=== PATIENT | female | born 1980 | race Caucasian/White ===

== ENCOUNTER 2022-05-16 23:47 | Inpatient (IN) | payer MEDICAID, OTHER ==
[~2022-05-16] VITALS: Ht 162.6 cm; Wt 124.7 kg
[2022-05-16 23:47] VITALS: BP 161/94
[~2022-05-16 23:47] MED LIST: ESOM40EC PO; GABA300C PO; METF-1274 PO; SULF-58 PO
--- NOTE | 2022-05-16 23:52 | NUR ---
PT BROUGHT TO BED 9 VIA AMBER
[2022-05-17] MEDS ORDERED: HALOPERIDOL IM 5 MG/ML VIAL IM ONE (00:30)
[2022-05-17] MEDS ORDERED: diphenhydrAMINE 50 MG/ML VIAL IM ONE (00:30)
--- NOTE | 2022-05-17 00:43 | NUR ---
XR AT BEDSIDE.
[2022-05-17] MEDS ORDERED: diphenhydrAMINE 50 MG/ML VIAL IVP ONE ×2 (00:45→02:05)
--- NOTE | 2022-05-17 01:02 | NUR ---
swabbed patient brice and influenza a&b and sent to lab
[2022-05-17] MEDS ORDERED: LORazepam 2 MG/ML VIAL IVP ONE (02:05)
--- NOTE | 2022-05-17 03:32 | NUR ---
ER MADE AWARE OF PATIENT'S FREQUENT HIGH BP AT 180s/100s
[2022-05-17 04:08] LABS: BASOPHILS # (AUTO) 0.1 K/uL (0.00-0.22); BASOPHILS % (AUTO) 0.5 % (0.0-2.0); HEMATOCRIT 30.5 % (36-48); HEMOGLOBIN 8.9 g/dL (12.0-16.0); LYMPHOCYTES # (AUTO) 2.6 K/uL (2.5-16.5); MEAN CORPUSCULAR HEMOGLOBIN 22 pg (27-31); MEAN CORPUSCULAR HGB CONC 29 g/dL (33-37); MEAN CORPUSCULAR VOLUME 73.8 fL (80-94); MONOCYTES # (AUTO) 2.4 K/uL (0.8-1.0); MONOCYTES % (AUTO) 14.2 % (1.7-9.3); NEUTROPHILS # (AUTO) 12.1 K/uL (1.8-7.7); NEUTROPHILS % (AUTO) 70.3 % (42.2-75.2); PLATELET COUNT (AUTO) 390 K/uL (140-450); RED BLOOD CELL COUNT(AUTO) 4.13 MIL/uL (4.20-5.40); RED CELL DISTRIBUTION WIDTH 19.1 % (11.6-13.7); WHITE BLOOD COUNT (AUTO) 17.2 K/uL (4.8-10.8)
[2022-05-17 04:20] LABS: ANION GAP 11.8 (8-16); CARBON DIOXIDE 25.8 mmol/L (21-32); CHLORIDE 100 mmol/L (98-107); CREATININE 1.6 mg/dL (0.6-1.3); GFR ARICAN-AMERICAN 45 mL/min (>90); GLUCOSE 304 mg/dL (74-106); POTASSIUM 5.6 mmol/L (3.5-5.1); SODIUM SERUM 132 mmol/L (136-145); UREA NITROGEN, BLOOD 26 mg/dL (7-18)
--- NOTE | 2022-05-17 04:20 | NUR ---
# 15 FR straight catheter utilizing sterile technique. Immediate return of 5 ml milka urine noted. Urine sample collected and sent to lab. Pt tolerated procedure well.
[2022-05-17 04:31] LABS: ALBUMIN 1.7 g/dL (3.4-5.0); ASPARTATE AMINOTRANSFERASE 31 U/L (15-37); TOTAL BILIRUBIN 0.3 mg/dL (0.0-1.0)
[2022-05-17 04:34] LABS: SALICYLATE < 2.8 mg/dL (2.8-20.0)
[2022-05-17 04:35] LABS: ACETAMINOPHEN < 0.5 ug/ml (10-30)
[2022-05-17 04:44] LABS: APPEARANCE,URINE CLEAR (CLEAR); BILIRUBIN,URINE NEGATIVE (NEGATIVE); BLOOD, URINE 1+ (NEGATIVE); COLOR,URINE YELLOW (YELLOW); LEUKOCYTE ESTERASE ,URINE NEGATIVE (NEGATIVE); NITRITE, URINE NEGATIVE (NEGATIVE); UGLUCOSE 3+ (NEGATIVE)
[2022-05-17] MEDS ORDERED: NACL 0.9% 1,000 ML IV ONE (04:50)
[2022-05-17 04:58] LABS: BARBITURATE, URINE NEGATIVE ng/ml (NEG <=200); BENZODIAZEPINE, URINE NEGATIVE ng/mL (NEG <=200); CANNABINOID, URINE NEGATIVE ng/mL (NEG <=50); COCAINE, URINE NEGATIVE ng/mL (NEG <=300); PHENCYCLIDINE SCREEN,URINE NEGATIVE ng/mL (NEG <=25)
[2022-05-17 04:59] LABS: OPIATE, URINE POSITIVE ng/mL (NEG <=2000)
[2022-05-17 05:00] LABS: RBC,URINE 20-50 /HPF (0-5); TRIPLE PHOSPHATE CRYSTAL,UR 0-10 /HPF (None Seen); WBC,URINE 0-5 /HPF (0-5)
[2022-05-17] MEDS ORDERED: OMEP40EC23 PO (06:26)
[2022-05-17] MEDS ORDERED: CARV3.12 PO (06:26)
[2022-05-17] MEDS ORDERED: LOSA100T1 PO (06:26)
[2022-05-17] MEDS ORDERED: ASPI-1822 PO (06:26)
[2022-05-17] MEDS ORDERED: FERR325E14 PO (06:26)
[2022-05-17] MEDS ORDERED: LIP80 PO (06:26)
--- NOTE | 2022-05-17 07:15 | NUR ---
Report and continution of care received from YOANA Donahue.
--- NOTE | 2022-05-17 07:15 | NUR ---
Pt report given to Ashish LEES. Transfer of care at this time.
--- NOTE | 2022-05-17 07:55 | NUR ---
Report and transfer of care given to YOANA Laura
--- NOTE | 2022-05-17 08:00 | NUR ---
RECEIVED PT IN [facility] RESPONS[facility] TO PAINFUL STIMULI. PT IMCOMPREHENSIBLE SOUNDS, UNABLE TO FOLLOW COMMANDS. STACH ON MONITOR. IV INTACT AND PATENT INFUSING FLUIDS PER ORDER. PENDING TELE BE FOR ADMISSION. BED IN LOW POSITION. NAD.
[2022-05-17] MEDS ORDERED: ZOLPIDEM 5 MG TAB PO PRN (08:15)
[2022-05-17] MEDS ORDERED: HYDROcodone/APAP 7.5/325 MG 1 TAB PO PRN (08:15)
[2022-05-17] MEDS ORDERED: guaiFENesin DM 200/20 MG-10 ML 10 ML UDC PO PRN (08:15)
[2022-05-17] MEDS ORDERED: ACETAMINOPHEN 325 MG TAB PO PRN (08:15)
[2022-05-17] MEDS ORDERED: HALOPERIDOL IM 5 MG/ML VIAL IM PRN (08:15)
[2022-05-17] MEDS ORDERED: DOCUSATE SODIUM 100 MG GELCAP PO PRN (08:15)
[2022-05-17] MEDS ORDERED: ONDANSETRON 4 MG/2 ML VIAL IM/IVP PRN (08:15)
[2022-05-17] MEDS ORDERED: POTASSIUM CHLORIDE 10 MEQ TABER PO PRN (08:15)
[2022-05-17] MEDS: NACL 0.9% 1,000 ML IV SCH ×2 (08:47→18:18)
[2022-05-17] MEDS: PANTOPRAZOLE 40 MG TABEC PO SCH (08:47)
--- NOTE | 2022-05-17 08:48 | NUR ---
PT UNABLE TO TOLERATE PO MEDS OR INTAKE AT THIS TIME.
[2022-05-17 09:19] LABS: AMYLASE 24 U/L (25-115); LIPASE 42 U/L (73-393); MAGNESIUM 2.2 mg/dL (1.8-2.4); PHOSPHORUS 4.6 mg/dL (2.5-4.9)
--- NOTE | 2022-05-17 09:26 | NUR ---
PT MOVED TO ER BED 6
--- NOTE | 2022-05-17 10:01 | NUR ---
DR KABA MADE AWARE OF ABNORMAL LABS STATES WILL PLACE ORDERS.
--- NOTE | 2022-05-17 10:09 | NUR ---
DR KABA AT BEDSIDE EVALUATING PT
--- NOTE | 2022-05-17 10:10 | NUR ---
DR KABA AWARE OF HR IN THE 130S & O2. PT SPO2 DROPPED TO 88% WHILE SLEEPING, PT PLACED ON O2 VIA N/C- 5L
[2022-05-17] MEDS ORDERED: INSULIN REGULAR, HUMAN 100 UNIT/ML VIAL IVP SCH (10:20)
[2022-05-17] MEDS ORDERED: DEXTROSE 50% 50 ML SYR IVP SCH (10:25)
[2022-05-17] MEDS ORDERED: PIPERACILLIN/TAZOBACTAM 3.375 GM VIAL IV ONE ×2 (12:05→18:06)
[2022-05-17] MEDS ORDERED: ACETAMINOPHEN 650 MG SUPP RC PRN (12:20)
--- NOTE | 2022-05-17 12:20 | NUR ---
Patient is noted with an elevated temperature of 102.[address] Silveira made aware and new order for Tylenol rectal for fever ordered.
[2022-05-17] MEDS: PIPERACILLIN/TAZOBACTAM 3.375 GM in DEXTROSE 5% 50 ML IV SCH ×2 (13:38→18:10)
--- NOTE | 2022-05-17 13:40 | NUR ---
Patient's axillary temp is 100.8 F. Cooling measures are continued to be implemented. Patient tolerating cooling measures well.
--- NOTE | 2022-05-17 16:34 | NUR ---
PATIENT HAS BEEN SCREENED AND CATEGORIZED MODERATE NUTRITION RISK. PATIENT WILL BE SEEN WITHIN 3-5 DAYS OF ADMISSION. / [address]
--- NOTE | 2022-05-17 17:40 | NUR ---
Patient is being reminded to spit out oral secretions and not to leave them in her mouth.
--- NOTE | 2022-05-17 18:30 | NUR ---
Patient is being repositioned and HOB elevated to keep oxygen levels up. Patient has no signs of distress noted.
--- NOTE | 2022-05-17 19:28 | NUR ---
Pt report given to URIAH Finley. Transfer of care at this time.
--- NOTE | 2022-05-17 20:54 | NUR ---
PROVIDED ORAL CARE FOR PATIENT
--- NOTE | 2022-05-17 22:30 | NUR ---
pt sleeping quietly . 2 side rails up for safety, 02 sat
[2022-05-18] MEDS ORDERED: PIPERACILLIN/TAZOBACTAM 3.375 GM VIAL IV ONE ×4 (00:04→18:08)
[2022-05-18] MEDS: PIPERACILLIN/TAZOBACTAM 3.375 GM in DEXTROSE 5% 50 ML IV SCH ×4 (00:19→18:31)
--- NOTE | 2022-05-18 01:00 | NUR ---
pt fidgeting while trying to take temperature. pt confused when asking questions. pt unable to communicate at this time
--- NOTE | 2022-05-18 06:10 | NUR ---
pt ripped iv out and shouted to use bathroom. provided walker and pt ambulated to bathroom. changed sheets and provided blanket
[2022-05-18] MEDS: NACL 0.9% 1,000 ML IV SCH (07:05)
--- NOTE | 2022-05-18 07:25 | NUR ---
Pt report given to YOANA LOPEZ. Transfer of care at this time.
[2022-05-18 07:26] LABS: BASOPHILS # (AUTO) 0.1 K/uL (0.00-0.22); BASOPHILS % (AUTO) 0.6 % (0.0-2.0); EOSINOPHILS # (AUTO) 0.1 K/uL (0-0.4); EOSINOPHILS % (AUTO) 0.6 % (0.0-4.0); HEMATOCRIT 27.7 % (36-48); HEMOGLOBIN 8.2 g/dL (12.0-16.0); LYMPHOCYTES # (AUTO) 1.1 K/uL (2.5-16.5); LYMPHOCYTES % (AUTO) 10.3 % (20.5-51.1); MEAN CORPUSCULAR HEMOGLOBIN 22 pg (27-31); MEAN CORPUSCULAR HGB CONC 30 g/dL (33-37); MEAN CORPUSCULAR VOLUME 74.2 fL (80-94); MONOCYTES % (AUTO) 9.8 % (1.7-9.3); NEUTROPHILS # (AUTO) 8.4 K/uL (1.8-7.7); NEUTROPHILS % (AUTO) 78.7 % (42.2-75.2); PLATELET COUNT (AUTO) 317 K/uL (140-450); RED BLOOD CELL COUNT(AUTO) 3.74 MIL/uL (4.20-5.40); RED CELL DISTRIBUTION WIDTH 19.2 % (11.6-13.7); WHITE BLOOD COUNT (AUTO) 10.7 K/uL (4.8-10.8)
[2022-05-18 07:43] LABS: ANION GAP 9.3 (8-16); CARBON DIOXIDE 24.8 mmol/L (21-32); CREATININE 1.5 mg/dL (0.6-1.3); POTASSIUM 4.1 mmol/L (3.5-5.1)
[2022-05-18] MEDS ORDERED: ATORVASTATIN 80 MG TAB PO SCH (09:00)
[2022-05-18] MEDS ORDERED: carvediloL 3.125 MG TAB PO SCH (09:00)
[2022-05-18] MEDS ORDERED: LOSARTAN 50 MG TAB PO SCH (09:00)
[2022-05-18] MEDS ORDERED: ASPIRIN 81 MG TAB.CHEW PO SCH (09:00)
[2022-05-18] MEDS ORDERED: FUROSEMIDE 40 MG/4 ML VIAL IVP SCH (09:00)
[2022-05-18] MEDS ORDERED: CRUSHER, PILL MC ONE (09:20)
[2022-05-18] MEDS: PANTOPRAZOLE 40 MG TABEC PO SCH (09:28)
[2022-05-18] MEDS: FERROUS SULFATE 325 MG TABEC PO SCH ×2 (09:30→21:00)
--- NOTE | 2022-05-18 09:37 | NUR ---
CLARIFIED WITH DR KABA REGARDING BP MEDS COZAAR AND COREG WELL BP PARAMETERS, ORDERED STOP BP MEDS WITH SYSTOLIC LESS THAN 110 AND TO HOLD COZAAR 0900 MED
--- NOTE | 2022-05-18 10:21 | NUR ---
PT ABLE TO GET UP AND AMBULATE WITH ASSISTANCE TO BEDSIDE COMMODE, NOTED APPROXIMATELY 500CC OF ORANGE COLORED URINE
--- NOTE | 2022-05-18 12:07 | NUR ---
DR WATKINS AT BEDSIDE FOR FURTHER EVAL
[2022-05-18] MEDS ORDERED: hydrALAZINE 20 MG/ML VIAL IVP PRN (12:15)
--- NOTE | 2022-05-18 14:37 | NUR ---
ULTRASOUND AT BEDSIDE
--- NOTE | 2022-05-18 16:56 | NUR ---
PT IS A/OX3 ALERT TO SELF, SITUATION AND TIME/DATE, DOES NOT KNOW WHERE SHE IS, TITRATED DOWN O2 TO 4LPM NC , SATTING AT 96%
--- NOTE | 2022-05-18 19:29 | NUR ---
Pt report given to TIM KRUSE. Transfer of care at this time.
--- NOTE | 2022-05-18 20:00 | NUR ---
PT REQ FOR [facility] TO PICK HER UP. PT IS A&O X4. PT WANTS TO CALL
--- NOTE | 2022-05-18 22:57 | NUR ---
HELPED PT TO COMMODE AND ASSISTED. CHANGED BED LINEN AND EUSEBIO. X2 SIDE RAILS UP . ALL PT NEEDS MET AT THIS TIME
--- NOTE | 2022-05-19 | NUR ---
CALLED DR MCGARRY ABOUT POSSIBLE AMA. PT STATES SHE READY TO GO HOME.
[2022-05-19] MEDS ORDERED: PIPERACILLIN/TAZOBACTAM 3.375 GM VIAL IV ONE ×2 (00:24→06:05)
[2022-05-19] MEDS: PIPERACILLIN/TAZOBACTAM 3.375 GM in DEXTROSE 5% 50 ML IV SCH ×4 (00:38→12:39)
--- NOTE | 2022-05-19 00:47 | NUR ---
called pt . he states he does not have a phone. but he will come when he gets off work to come visit her.
--- NOTE | 2022-05-19 01:55 | NUR ---
PT MUMBLING IN SLEEP. X2 SIDE RAILS UP FOR SAFETY. LIGHTS DIM
[2022-05-19 06:16] LABS: FOLIC ACID 15.2 ng/mL (>3.0)
--- NOTE | 2022-05-19 06:37 | NUR ---
HELPED PT WITH COMMODE. PERFORMED PERICARE. PT REQUESTS TO CALL AND WANTS TO SEE HIM
--- NOTE | 2022-05-19 06:37 | NUR ---
PT KAREN WILKINSON [phone]
--- NOTE | 2022-05-19 07:18 | NUR ---
Pt report given to URIAH ROBERTSON. Transfer of care at this time.
[2022-05-19 07:31] LABS: BASOPHILS # (AUTO) 0.1 K/uL (0.00-0.22); BASOPHILS % (AUTO) 0.6 % (0.0-2.0); EOSINOPHILS # (AUTO) 0.3 K/uL (0-0.4); EOSINOPHILS % (AUTO) 3.2 % (0.0-4.0); HEMATOCRIT 25.1 % (36-48); HEMOGLOBIN 7.4 g/dL (12.0-16.0); LYMPHOCYTES % (AUTO) 10.3 % (20.5-51.1); MEAN CORPUSCULAR HEMOGLOBIN 22 pg (27-31); MEAN CORPUSCULAR HGB CONC 30 g/dL (33-37); MEAN CORPUSCULAR VOLUME 73.4 fL (80-94); MONOCYTES # (AUTO) 0.7 K/uL (0.8-1.0); MONOCYTES % (AUTO) 7.5 % (1.7-9.3); NEUTROPHILS # (AUTO) 7.7 K/uL (1.8-7.7); NEUTROPHILS % (AUTO) 78.4 % (42.2-75.2); PLATELET COUNT (AUTO) 287 K/uL (140-450); RED BLOOD CELL COUNT(AUTO) 3.42 MIL/uL (4.20-5.40); RED CELL DISTRIBUTION WIDTH 19.5 % (11.6-13.7); WHITE BLOOD COUNT (AUTO) 9.9 K/uL (4.8-10.8)
[2022-05-19 07:44] LABS: ANION GAP 10.2 (8-16); CREATININE 1.3 mg/dL (0.6-1.3); POTASSIUM 4.2 mmol/L (3.5-5.1)
--- NOTE | 2022-05-19 08:15 | NUR ---
Patient will be admitted to care of MD ALLRED. Admited to TELE. Will go to [facility] [address]. Belongings list completed. Report to JONY LEES.
[2022-05-19 08:20] VITALS: BP 137/85
--- NOTE | 2022-05-19 08:20 | NUR ---
RECEIVED PATIENT FROM ER NURSE VIA AMBER. PT ADMITTED FOR ALTERED MENTAL STATUS AND METABOLIC ENCEPHALOPATHY. PT IS AOX3, ABLE TO MAKE NEEDS KNOWN. RESPIRATIONS EVEN AND UNLABORED. ON ROOM AIR NO DISTRESS NOTED. SKIN IS WARM, DRY, AND INTACT. IV SITE ON RFA 20G. SALINE LOCKED. INTACT AND PATENT. ABD IS SOFT, FLAT, AND NON-DISTENDED. BOWEL SOUNDS ACTIVE IN ALL QUADRANTS. DENIES PAIN AT THE MOMENT. PLAN OF CARE DISCUSSED. SAFETY PRECAUTIONS IN PLACE. CALL LIGHT WITHIN REACH. WILL CONTINUE TO MONITOR.
[2022-05-19] MEDS: PANTOPRAZOLE 40 MG TABEC PO SCH (09:22)
[2022-05-19] MEDS: FERROUS SULFATE 325 MG TABEC PO SCH (09:22)
--- NOTE | 2022-05-19 09:30 | NUR ---
ALL SCHEDULED MEDS GIVEN. PT IS STABLE. NO DISTRESS NOTED. WILL CONTINUE TO MONITOR.
[2022-05-19] MEDS ORDERED: AMOX-999 PO (10:12)
[2022-05-19] MEDS ORDERED: FERR325E14 PO (10:12)
[2022-05-19] MEDS ORDERED: CARV3.12 PO (10:12)
--- NOTE | 2022-05-19 10:40 | NUR ---
DC PLANNING: THE PATIENT PRESENTED WITH C/O ALOC, FOUND IN A MOTEL AND GIVEN NARCAN IN THE FIELD. H/O DM AND DRUG USE, TOX SCREEN POSITIVE FOR OPIATES AMPHETAMINES AND ETOH. GLUCOSE 304, NA+ 132, K+ 5.6, BNP 1600, CR 1.6. STARTED ON ZOSYN, PROTONIX, HALDOL IM. CARDIOLOGY CONSULT ORDERED, BLOOD AND URINE CULTURES ORDERED AND RESULTED NEGATIVE. PATIENT TO DC BACK TO [facility] WHEN CLINICALLY STABLE, CM WILL FOLLOW. Addendum: 05/19/22 at 1218 by Sangeeta Dumont CM DC PLANNING: KIMBERLY SPOKE WITH PATIENT AT BEDSIDE, PATIENT STATES SHE IS HOMELESS AND ST[place] ON [address] [id number] IN [place]. PATIENT WAS DIFFICULT TO GET INFORMATION FROM SHE KEPT STATING SHE DIDN'T KNOW WHEN ASKED ABOUT THE ADDRESS ON THE FACE SHEET OR HER/SPOUSES TELEPHONE NUMBERS. SHE STATES THAT SHE DOESN'T KNOW HER PHONE NUMBER HE HAS A NEW ONE, NURSING HAS BEEN CALLING HIM FOR TRANSPORT AND HAVEN'T BEEN ABLE TO REACH HIM. Krystina CARTER ORDERED, KIMBERLY GAVE THE PATIENT A FWW, PLACED IN HER ROOM. PATIENT IS ASKING FOR CLOTHES AND A RIDE TO [place], KIMBERLY ENDORSED THIS TO HER NURSE. THE PATIENT ORIGINALLY STATED THAT SHE WOULD GO TO HER FATHERS HOME IN [place] BUT CHANGED IT TO [place]. CM WILL FOLLOW.
[2022-05-19 12:00] VITALS: BP 141/83
--- NOTE | 2022-05-19 12:43 | NUR ---
PATIENT REMOVED IV. PATIENT DOES NOT WANT IV TO BE PLACED. ABX WAS STOPPED AND NOT GIVEN. NOTIFIED MD AND IS AWARE OF THE SITUATION.
[2022-05-19 13:36] VITALS: BP 141/83
--- NOTE | 2022-05-19 14:10 | NUR ---
ENDORSED DISCHARGE INSTRUCTIONS TO PATIENT. PT VERBALIZED UNDERSTANDING AND SIGNED DISCHARGE FORMS.
--- NOTE | 2022-05-19 14:30 | NUR ---
DISCHARGED PATIENT OFF THE UNIT. REMOVED ID BAND AND ESCORTED TO FRONT LOBBY. PT WAS STABLE PRIOR TO DISCHARGE
--- NOTE | 2022-05-19 14:30 | NUR ---
ENDORSED DISCHARGE INSTRUCTIONS TO PATIENT. PT VERBALIZED UNDERSTANDING AND SIGNED DISCHARGE FORMS. Addendum: 05/19/22 at 1528 by Nima Zambrano RN RN WRONG TIMESTAMP
[2022-05-19] MEDS ORDERED: GABAPENTIN 300 MG CAP PO PRN (22:45)
== END 2022-05-19 14:22 | disposition home or self-care (01) | DRG 720 ==
LOC: MED 23:47 → MTU 05-17 06:13
PROVIDERS: ADMIT Hospitalist; ATTEND Hospitalist
DX: A41.9 Sepsis, unspecified organism (principal); N17.0 Acute kidney failure with tubular necrosis; G92.8 Other toxic encephalopathy; E43 Unspecified severe protein-calorie malnutrition; I42.7 Cardiomyopathy due to drug and external agent; E87.1 Hypo-osmolality and hyponatremia; D50.9 Iron deficiency anemia, unspecified; E11.42 Type 2 diabetes mellitus with diabetic polyneuropathy; L03.116 Cellulitis of left lower limb; N39.0 Urinary tract infection, site not specified; F15.10 Other stimulant abuse, uncomplicated; F11.10 Opioid abuse, uncomplicated; E11.65 Type 2 diabetes mellitus with hyperglycemia; E87.5 Hyperkalemia; Z20.822 Contact with and (suspected) exposure to COVID-19; E66.01 Morbid (severe) obesity due to excess calories; Z79.82 Long term (current) use of aspirin; Z79.899 Other long term (current) drug therapy; Z68.42 Body mass index [BMI] 45.0-49.9, adult
CPT/HCPCS: 36415; 70450; 71045; 80048; 80053; 80305; 81001; 82150; 82607; 82728; 82746; 83036; 83540; 83690; 83735; 83880; 84100; 84702; 85025; 85045; 87040; 87081; 87086; 93005; 96361; 96372; 96374; 96375; 99285; G0480; G0482; J1200; J1630; J1815; J1940; J2060; J2543; J7030; J7060; Q0092